=== PATIENT | female | born 1955 | race American Indian/Alaskan Native ===

== ENCOUNTER 2017-05-01 13:54 | Day surgery (SDC) | payer BC, OTHER ==
[2017-05-01] MEDS ORDERED: GLUCOPHAGE500 MG PO (14:15)
--- NOTE | 2017-05-01 15:15 | NUR ---
05/01/17 1515 Indigo Mcguire 1512-PATIENT ARRIVED TO PACU ON 2L NC O2 SAT 100% PATIENT AWAKE DENIES PAIN OR NAUSEA. ENCOURAGED TO PASS FLATUS. PATIENT TO RECEIVE HEMORRHOID AND DIVERTICULOSIS BOOKLET
--- NOTE | 2017-05-07 01:42 | OR ---
[facility] [address], [place] [address] Signed PREOPERATIVE DIAGNOSIS: Episodic rectal bleeding and diarrhea. POSTOPERATIVE DIAGNOSES: Minimal diverticular changes. Internal hemorrhoids. PROCEDURE: Total colonoscopy to cecum. SURGEON: See Matthews MD. ANESTHESIA: Intravenous sedation, fentanyl 100 mcg, Versed at 3 mg. INDICATION: This 61-year-old woman is a patient of Dr. Reveles of [facility]. She has had diarrhea and episodic rectal bleeding. She is admitted to undergo colonoscopy understanding the risks of bleeding, infection, and perforation. Notably, she has no fa tahir history of colon cancer. FINDINGS: The prep was good. Complete colonoscopy was undertaken to the cecum. There was no sign of cancer or polyps. She did not have overt signs of colitis. There were few scattered diverticula. She did have internal hemorrh oids. There were no other findings of concern. PROCEDURE: The patient was brought to the endoscopy suite, placed in lateral decubitus position. Given intravenous sedation to the point of slurred speech and nystagmus. Digital rectal examination was normal. O lympus video colonoscope was passed into the rectum and manipulated throughout the colon ultimately intubating the cecum itself. The ileocecal valve and appendiceal orifice were normal. The scope was withdrawn from that point and with careful inspection t hroughout showed no sign of polyps, colon cancer or colitis. There were few scattered diverticula of the sigmoid. Retroflexion in the rectum confirmed internal hemorrhoids, but no sign of active bleeding. The scope was straightened, withdrawn, removed, and the patient was taken to recovery room in good condition. CONCLUDING DIAGNOSES: Minimal diverticular change. Internal hemorrhoids. PLAN: Recommend Citrucel 1 tablespoon each day. The bleeding should recur or persist, I would recommend or see me to consider hemorrhoidal banding in the office setting. Electronically Signed By: SEE MATTHEWS MD 05/07/17 0142 PATIENT NAME: PATRICIA JOSE OPERATIVE REPORT DATE OF : 53 PHYSICIAN: SEE MATTHEWS MD REPORT #: [id number] REPORT IS CONFIDENTIAL AND NOT TO BE RELEASED WITHOUT AUTHORIZATION [address] [place] [address] Signed See Matthews MD JM/Modl /[id number] cc: Tera Suarez Electronically Signed By: SEE MATTHEWS MD 05/07/17 0142 PATIENT NAME: PATRICIA JOSE OPERATIVE REPORT DATE OF : 53 PHYSICIAN: SEE MATTHEWS MD REPORT #: [id number] REPORT IS CONFIDENTIAL AND NOT TO BE RELEASED WITHOUT AUTHORIZATION
== END 2017-05-01 15:42 | disposition home or self-care (01) ==
LOC: OPS 13:54 → DS 13:54 → OPS 14:00
PROVIDERS: Surgery
PROC: 0DJD8ZZ Inspection of Lower Intestinal Tract, Via Natural or Artificial Opening Endoscopic (ICD-10-PCS; principal; 2017-05-01 14:00)
DX: K64.8 Other hemorrhoids (principal); K57.30 Diverticulosis of large intestine without perforation or abscess without bleeding; E11.9 Type 2 diabetes mellitus without complications; E78.5 Hyperlipidemia, unspecified; Z90.710 Acquired absence of both cervix and uterus; Z98.51 Tubal ligation status; Z98.890 Other specified postprocedural states; Z79.899 Other long term (current) drug therapy
CPT/HCPCS: 99152; 99153; J2250; J3010; J7120

== ENCOUNTER 2022-06-13 14:34 | Emergency (ER) | payer MEDICARE, OTHER ==
[~2022-06-13] VITALS: Ht 160 cm; Wt 59.0 kg
[~2022-06-13 14:34] MED LIST: GLUCOPHAGE500 MG PO
--- NOTE | 2022-06-14 17:49 | EKG ---
[facility] [address] [facility] [place] [address] Signed Normal sinus rhythm with sinus arrhythmia Normal ECG No previous ECGs available Confirmed by BRENNEN MCCOLLUM MD ([id number] on 06/14/2022 5:48:59 PM Electronically Signed By: BRENNEN MCCOLLUM MD 06/14/22 1749 PATIENT NAME: PATRICIA JOSE Electrocardiogram DATE OF : 53 PHYSICIAN: BRENNEN MCCOLLUM MD REPORT #: [id number] REPORT IS CONFIDENTIAL AND NOT TO BE RELEASED WITHOUT AUTHORIZATION
== END 2022-06-13 15:57 | disposition home or self-care (01) ==
LOC: ED 14:34
DX: T63.441A Toxic effect of venom of bees, accidental (unintentional), initial encounter (principal); R07.9 Chest pain, unspecified; E11.9 Type 2 diabetes mellitus without complications; Z79.84 Long term (current) use of oral hypoglycemic drugs
CPT/HCPCS: 36415; 71045; 80053; 83735; 84484; 85025; 85610; 93005; 93010; 99285-25